=== PATIENT | female | born 1985 | race Caucasian/White ===

== ENCOUNTER 2021-02-26 17:28 | Emergency (ER) | payer BC, SELFPAY ==
--- NOTE | ~2021-02-26 | CT_ITS ---
EXAMINATION: CT FACIAL BONES WITHOUT CONTRAST CLINICAL INFORMATION: Facial trauma of worse COMPARISON: None TECHNIQUE: 3 mm thin axial and reformatted 1.5 mm thin sagittal and coronal images of facial bones were obtained This CT examination was performed using dose optimization techniques as appropriate, variously including the following: *Automated exposure control *Adjustment of mA and/or kV according to patient size (this includes techniques or standardized protocols for targeted exams where dose is matched to indication/reason for exam; i.e. extremities or head) *Use of iterative reconstruction technique DLP: 270 mGy-cm FINDINGS: There is no acute maxillofacial fracture. The pterygoid plates are intact. The zygomatic arches are intact. The lamina papyracea are intact. The orbital rims are intact. There is mild mucoperiosteal thickening right maxillary sinus. Rest of the paranasal sinuses are well aerated. No air-fluid levels are seen. There is displacement right nasal and nondisplaced left nasal bone fractures with mild soft tissue swelling. Moderate deviation of nasal septum to the right is noted with bony spur. The ostiomeatal complexes are clear. The lamina papyracea are intact. The ethmoid roofs are symmetric. The carotid canals are normally covered by bone. No maxillary periapical disease is seen. The mastoid air cells and visualized middle ear cavities are well-aerated. The orbits are normal. The TMJs are unremarkable. The imaged portions of the brain demonstrate no acute abnormality. CT/CT facial bones wo con IMPRESSION: No fracture involving bilateral nasal bones with soft tissue swelling. There is moderate deviation of nasal septum to the right with a small bony spur.
[2021-02-26 19:14] VITALS: BP 150/94; PULSE 72; RESP 16; TEMP 36.6; O2SAT 100; BMI 23.3
--- NOTE | 2021-02-26 19:20 | PC.NURSE ---
PT BROUGHT BACK TO STRETCHER BY WC, C-COLLAR PLACED PRECAUTION.
--- NOTE | 2021-02-26 19:37 | ED_ITS ---
HPI - Fall General Chief Complaint: Fall Stated Complaint: Fall of horse/?fx nose Time Seen by Provider: 02/26/21 19:36 Source: patient Mode of arrival: ambulatory Limitations: no limitations History of Present Illness HPI Narrative: Patient fell from horse, landing on his face, no LOC MD complaint: fall Onset (ago): hour(s) Fall from: other (fell from horse) Fall witnessed: yes, by bystander Loss of consciousness: none Prolonged down time: no Symptoms prior to fall: none Severity: moderate Related Data Previous Rx's Medication Instructions Recorded amoxicillin-pot clavulanate 1 tab PO BID #14 tab 02/26/21 [Augmentin] naproxen [Naprosyn] 500 mg PO BID #20 tab 02/26/21 Allergies Allergy/AdvReac Type Severity Reaction Status Date / Time No Known Allergies Allergy Verified 02/26/21 19:13 Review of Systems Constitutional: Constitutional: Reports no additional constitutional complaints Eyes: Eyes: Reports no additional eye complaints ENT: Denies dizziness Cardiovascular: Cardiovascular: Reports no additional cardiovascular complaints Respiratory: Respiratory: Reports as per HPI Gastrointestinal: Gastrointestinal: Reports no additional gastrointestinal complaints Genitourinary: Genitourinary: Reports no additional female genitourinary complaints Musculoskeletal: Musculoskeletal: Reports no additional musculoskeletal complaints Integumentary/Breasts: Skin/Breast: Denies rash Neurologic: Reports system reviewed and no additional complaints, except as documented, Denies dizziness and Denies Sensory deficit (Neuro) Psychiatric: Psychiatric: Denies anxiety [facility] Past Medical History Medical History Vitreous detachment of both eyes Social History Social History Alcohol intake: never Smoking Status: Never smoker Use of substances other than those prescribed or required for medical reasons: No Advance Directives: No Advance Directives Information Provided: Yes Physical Exam Vital Signs: Vital Signs: Last Vital Signs Temp 98.0 F 02/26/21 19:41 Pulse 74 02/26/21 19:41 Resp 16 02/26/21 19:41 BP 141/84 H 02/26/21 19:41 Pulse Ox 99 02/26/21 19:41 Body Mass Index 23.3 Const: General: healthy appearing Nutritional Appearance: average body habitus Orientation/consciousness: oriented to person and patient oriented x3 Limitations: no limitations HENMT: Other: Nose with ecchymosis and deformity and small laceration to nose, no other injury Ears: external ears normal Mouth: Normal oral and palatal mucosa present and oropharynx normal Throat: Yes posterior oropharynx normal Eyes: General: appearance normal, both eyes and all related structures Neck: Other: supple Neck: Yes normal visual inspection Chest: Chest palpation & inspection: normal inspection of the chest Resp: Auscultation: clear to auscultation bilaterally Cardio: Jugular venous distension: no JVD Rate: regular rate Rhythm: regular rhythm Heart sounds: S1 normal heart sound present and S2 normal heart sound present GI: Inspection: Yes normal to inspection Palpation (GI): Soft to palpation, nontender and No hepatosplenomegaly present Auscultation: normal bowel sounds : General: Yes no CVA tenderness Back/Spine/Pelvis: Back: no CVA tenderness Skin: General skin exam: no rashes or lesions noted Neuro: General: oriented to person and patient oriented x3 Cranial nerves: Yes CN's II-XII intact bilaterally Motor exam (neuro): 5/5 motor strength pre sent throughout Sensory Exam: No Sensory deficit (Neuro) Extrem: General: Yes normal to inspection Psych: Appearance: grossly normal MDM - Fall Imaging Data facial CT: Radiologist's impression: There is displacement right nasal and nondisplaced left nasal bone fractures with mild soft tissue swelling. Moderate deviation of nasal septum to the right is noted with bony spur. Discharge Plan Discharge Clinical Impression: Closed fracture nasal bone Qualifiers: Encounter type: initial encounter Qualified Code(s): S02.2XXA - Fracture of nasal bones, initial encounter for closed fracture Patient Disposition: Home, Self-Care Instructions: Nasal Fracture (ED) Prescriptions: New naproxen [Naprosyn] 500 mg tablet 500 mg PO BID Qty: 20 RF: 0 amoxicillin-pot clavulanate [Augmentin] 875-125 mg tablet 1 tab PO BID Qty: 14 RF: 0 Referrals: Abelino Heller [Physician] - 10 days
[2021-02-26 19:41] VITALS: BP 141/84; PULSE 74; RESP 16; TEMP 36.7; O2SAT 99
[2021-02-26] MEDS: Ibuprofen 800 MG TABLET PO (21:15)
[2021-02-26] MEDS: Amoxicillin/Potassium Clav 875 MG TABLET PO (21:15)
== END 2021-02-26 21:43 | disposition home or self-care (01) ==
PROVIDERS: Emergency Provider Emergency Medicine
DX: S02.2XXA Fracture of nasal bones, initial encounter for closed fracture (principal); R51.9 Headache, unspecified; V80.010A Animal-rider injured by fall from or being thrown from horse in noncollision accident, initial encounter; Y93.52 Activity, horseback riding; Y92.9 Unspecified place or not applicable; Y99.9 Unspecified external cause status; Z79.899 Other long term (current) drug therapy
CPT/HCPCS: 70486; 99285